=== PATIENT | male | born 1995 | race African-American/Black ===

== ENCOUNTER 2018-11-11 21:05 | Emergency (ER) | payer OTHER ==
[~2018-11-11] VITALS: Ht 170.2 cm; Wt 81.6 kg
[2018-11-11 22:11] LABS: PLATELET COUNT 292 K/uL (142-355)
[2018-11-11 22:20] LABS: POTASSIUM 3.1 mmol/L (3.6-5.2); SODIUM 138 mmol/L (136-145)
[2018-11-12 00:15] VITALS: BP 122/74; TEMP 98.2
== END 2018-11-12 00:15 | disposition home or self-care (01) ==
LOC: ED 21:05
PROVIDERS: Internal Medicine
DX: E86.0 Dehydration (principal); E87.6 Hypokalemia; E83.42 Hypomagnesemia; R20.0 Anesthesia of skin; R00.0 Tachycardia, unspecified
CPT/HCPCS: 36415; 80053; 80307; 80320; 81000; 82550; 83735; 84484; 85027; 85379; 93005; 96361; 96365; 99284